=== PATIENT | male | born 2000 | race American Indian/Alaskan Native ===

== ENCOUNTER 2020-08-05 17:20 | Emergency (ER) | payer BC ==
[2020-08-05 17:47] VITALS: BP 132/82
[2020-08-05] MEDS ORDERED: DIPHtheria,PERTUSSIS(ACELL),TETANUS VACCINE/PF 0.5 ML VIAL IM ONE (17:49)
--- NOTE | 2020-08-05 17:50 | Emergency Department Report ---
Blank Doc - Documentation Documentation: 19-year-old male that presents with dog bite. Patient stated this is his dog and has rabies vaccine. Occurred 2 days ago. 1- This initial assessment/diagnostic orders/clinical plan/ treatment(s) is/are subject to change based on pt's health status, clinical progression and re- assessment by fellow clinical providers in the ED. Further treatment and workup at subsequent clinical provers discretion. Patient/guardians urged not to elope from ED as their condition may be serious if not clinically assessed and managed. 2-x-ray 3-tetanus shot
[2020-08-05] MEDS ORDERED: NEOMY 3.5 MG/BACIT 400 UNITS/POLY B 5000 UNITS/GM OINT PACKET TP ONE (17:52)
[2020-08-05] MEDS ORDERED: IBUPROFEN 600 MG TAB PO ONE (17:52)
--- NOTE | 2020-08-05 18:19 | Emergency Department Report ---
ED Animal Bite HPI - General Chief Complaint: Animal Bite Stated Complaint: DOG BITE Time Seen by Provider: 08/05/20 17:49 Source: patient Mode of arrival: Ambulatory Limitations: No Limitations - History of Present Illness Initial Comments: Patient is a 19-year-old male presents emergency room complaints of a dog bite that occurred 2 days ago. He states that the dog belongs to him and that it is fully vaccinated and up-to-date. He states that they were just playing around. He was bit to his left hand and left finger. He is unsure of her last tetanus immunization. He denies any numbness or weakness. He denies any fever or drainage. No past medical history. No allergies to medications. - Related Data Previous Rx's Medication Instructions Recorded Last Taken Type Amoxicillin/Potassium Clav 1 each PO BID 10 Days #20 tablet 08/05/20 Unknown Rx [Augmentin 875-125 Tablet] Neomycin/Bacitracin/Polymyxinb 1 applicatio TP BID #14 oint...g. 08/05/20 Unknown Rx [Triple Antibiotic Ointment] Allergies Allergy/AdvReac Type Severity Reaction Status Date / Time No Known Allergies Allergy Unverified 08/05/20 17:44 ED Review of Systems ROS: Stated complaint: DOG BITE Other details as noted in HPI Comment: All other systems reviewed and negative ED Past Medical Hx - Past Medical History Previous Medical History?: No - Surgical History Past Surgical History?: No - Social History Smoking Status: Never Smoker Substance Use Type: Marijuana - Medications Home Medications: Home Medications Medication Instructions Recorded Confirmed Last Taken Type Amoxicillin/Potassium Clav 1 each PO BID 10 Days #20 tablet 08/05/20 Unknown Rx [Augmentin 875-125 Tablet] Neomycin/Bacitracin/Polymyxinb 1 applicatio TP BID #14 oint...g. 08/05/20 Unknown Rx [Triple Antibiotic Ointment] ED Physical Exam - General Limitations: No Limitations General appearance: alert, in no apparent distress - Head Head exam: Present: atraumatic, normocephalic - Eye Eye exam: Present: normal appearance - ENT ENT exam: Present: mucous membranes moist - Respiratory Respiratory exam: Absent: respiratory distress, accessory muscle use - Extremities Exam Extremities exam: Present: other (2 cm laceration present to the palmar surface of the left 4th digit, no muscle or tendon invovlement, no foreign body, appears to be already partially closed, small amount of surrounding erythema, no fluctuance, FROM Of the left hand and digits, neurovascularly intact) - Neurological Exam Neurological exam: Present: alert, oriented X3 - Psychiatric Psychiatric exam: Present: normal affect, normal mood - Skin Skin exam: Present: warm, dry, other (1 cm abrasion to the dorsal surface of the left hand near the index finger MCP, small amount of surrounding erythema, no fluctuance, no necrosis, no drainage) ED Course Vital Signs 08/05/20 17:46 Temperature 98.7 F Pulse Rate 92 H Respiratory 16 Rate Blood Pressure 132/82 O2 Sat by Pulse 100 Oximetry - Reevaluation(s) Reevaluation #1: Ordering Physician: ERINN DURHAM NP Date of Service: 08/05/20 Procedure(s): XR hand 3+V LT Accession Number(s): [id number] cc: ERINN DURHAM NP Fluoro Time In Minutes: LEFT HAND 3 VIEWS INDICATION: Dogbite, left hand pain. COMPARISON: No relevant prior imaging study available. FINDINGS: No significant skeletal abnormality. No soft tissue gas or radiodense foreign bodies. IMPRESSION: 1. No acute findings. Signer Name: Lonnie Menendez MD Signed: 08/05/2020 6:15 PM Workstation Name: [id number] Transcribed By: EMELI Dictated By: Lonnie Menendez MD Electronically Authenticated By: Lonnie Menendez MD Signed Date/Time: 08/05/201814 DD/ 14 TD/TT: Patient is a 19-year-old male presents emergency room complaints of a dog bite that occurred 2 days ago. He states that the dog belongs to him and that it is fully vaccinated and up-to-date. He states that they were just playing around. He was bit to his left hand and left finger. He is unsure of her last tetanus immunization. He denies any numbness or weakness. He denies any fever or drainage. No past medical history. No allergies to medications. vss. on exam: 2 cm laceration present to the palmar surface of the left 4th digit, no muscle or tendon invovlement, no foreign body, appears to be already partially closed, small amount of surrounding erythema, no fluctuance, FROM Of the left hand and digits, neurovascularly intact. XR left hand: 1. No acute findings. No signs of abscess or infectious tenosynovitis at this time. Patient given Tdap and wound care performed by nurse. Patient given prescription for Augmentin and triple abx ointment. Advised patient Please use medication as prescribed. Please keep area clean, dry, covered. Wash with antibacterial soap and water and pat dry. No hot tub, no pool, no soaking in water. Showering is fine. Follow-up with your primary care doctor for reexamination. Return to e mergency room for any new or worsening symptoms or worsening signs of infection despite antibiotic therapy. Critical care attestation.: If time is entered above; I have spent that time in minutes in the direct care of this critically ill patient, excluding procedure time. ED Disposition Clinical Impression: Dog bite of multiple sites of left hand and fingers Qualifiers: Encounter type: initial encounter Qualified Code(s): S61.452A - Open bite of left hand, initial encounter Cellulitis Qualifiers: Site of cellulitis: extremity Site of cellulitis of extremity: upper extremity Laterality: left Qualified Code(s): L03.114 - Cellulitis of left upper limb Disposition: DC-01 TO HOME OR SELFCARE Is pt being admited?: No Does the pt Need Aspirin: No Condition: Stable Instructions: Animal Bite, Adult, [id number], Cellulitis, Adult, [id number], Wound Care, Adult Additional Instructions: Please use medication as prescribed. Please keep area clean, dry, covered. Wash with antibacterial soap and water and pat dry. No hot tub, no pool, no soaking in water. Showering is fine. Follow-up with your primary care doctor for reexamination. Return to emergency room for any new or worsening symptoms or worsening signs of infection despite antibiotic therapy. Prescriptions: Amoxicillin/Potassium Clav [Augmentin 875-125 Tablet] 1 each PO BID 10 Days #20 tablet Neomycin/Bacitracin/Polymyxinb [Triple Antibiotic Ointment] 1 applicatio TP BID #14 oint...g. Referrals: your, primary care doctor [Other] - 2-3 Days Time of Disposition: 18:23 Print Language: YORUBA
== END 2020-08-05 18:53 | disposition home or self-care (01) ==
LOC: ED 17:20
DX: S61.251A Open bite of left index finger without damage to nail, initial encounter (principal); S61.452A Open bite of left hand, initial encounter; L03.114 Cellulitis of left upper limb; F12.10 Cannabis abuse, uncomplicated; Z79.2 Long term (current) use of antibiotics; Z79.899 Other long term (current) drug therapy; W54.0XXA Bitten by dog, initial encounter; Y93.89 Activity, other specified; Y92.89 Other specified places as the place of occurrence of the external cause; Y99.8 Other external cause status
CPT/HCPCS: 73130; 90471; 90715; 99283; A6250